=== PATIENT | female | born 1940 | race Caucasian/White ===

== ENCOUNTER 2016-09-11 19:12 | Emergency (ER) | payer MEDICARE ==
--- NOTE | ~2016-09-11 | CR219 ---
[facility] A Service of [facility] & [facility] RADIOLOGY TEXT RESULTS PATIENT: KELLIE ERNANDEZ LOCATION: [facility] : 44 UNIT #: [id number] AGE: [address]: Ken Hummel MD SEX: F ORDER DR: [id number] [facility] [address] [place], [place] [address] [id number] MR#: [id number] Acc #: [id number] NAME: KELLIE ERNANDEZ : 1940 SEX: F STUDY DATE/TIME: 09/11/2016 19:48 UNIT: [facility] ROOM: STUDY DESCRIPTION: CR Sacrum and Coccyx Min 2 Vie Attending Physician: Ken Hummel M.D. Referring Physician: aRndi Baker M.D. Ordering Physician: Ken Hummel M.D. Primary Care Physician: Randi Baker M.D. MEDICAL IMAGING REPORT This report is preliminary unless electronic signature is present EXAM Sacral coccygeal series dated 09/11/[address] chest, abdomen and pelvis dated 04/07/11 HISTORY The patient fell today while gardening. Sacrococcygeal pain since then. FINDINGS Inlet, outlet views of the sacrococcygeal spine along with a lateral view was obtained. Four images are given. The study is significantly limited. No obvious acute well-defined displaced fracture could be identified. There is mild cortical irregularity noted in the sacrococcygeal junction. Meanwhile, the images do not appear to confirm the fracture in the other lateral view. No significant abnormality is discerned in the frontal view, and if this raises some clinical concern, CT pelvic can be considered. Bilateral SI joints do not demonstrate dislocation or widening. Calcifications are noted in the pelvic soft tissues. They are probably phleboliths, based on statistics, benign. Dictated by... Violet Levy M.D. THIS IS AN ELECTRONICALLY VERIFIED REPORT Violet Levy M.D. at 09/14/2016 1:39 PM CPR/ea TD: 09/12/2016 15:05 JOB #: [id number] [facility] A Service of [facility] & [facility] RADIOLOGY TEXT RESULTS PATIENT: KELLIE ERNANDEZ LOCATION: [facility] : 44 UNIT #: [id number] AGE: [address]: Ken Hummel MD SEX: F ORDER DR: MEDICAL IMAGING REPORT Page 1 of 1 COPY
--- NOTE | ~2016-09-11 | ER ---
Unit #: [id number] #: [id number] Patient: KELLIE ERNANDEZ [id number] [facility]. [place], [place] [address] [id number] E MR#: [id number] NAME: KELLIE ERNANDEZ ROOM: Sex: F Age: 75 : 1940 Service Date: 09/11/2016 Attending Physician: Ken Hummel M.D. Primary Care Physician: Randi Baker M.D. EMERGENCY DEPT PHYSICIAN NOTE Please see the written T-sheet for the full details of the encounter. Mrs. Ernandez is a very pleasant 75-year-old woman who was seen in the emergency department today after a mechanical fall in which she hit her head. She denied any loss of consciousness as well as any headache, blurred vision, nausea, or any other concerning symptoms following her injury. She did suffer a stellate laceration to her posterior scalp which was repair here with surgical poncho. A CAT scan of her head was ordered and the results was called to me by the radiologist. The radiologist stated that the patient had a small focus of blood in her right cerebellum with some surrounding edema. In the context of trauma, it could represent a traumatic intraparenchymal hemorrhage; however, the radiologist stated that given her history of cancer a metastatic lesion could not be ruled out. I went to discuss the results with the patient who understood the two possibilities of traumatic hemorrhage versus metastatic lesion. I informed her that in this scenario, we would typically transfer the patient for evaluation by neurosurgery at [facility]. The patient was very adamant that she did not wish to be transferred to [place]. I explained the possibility that if this were a hemorrhage and were to get worse she could risk permanent neurologic dysfunction and/or . She was able to understand this risk and repeat it back to me. I also discussed with the patient that this could represent a hemorrhagic metastatic lesion from her cancer in which case this would need to be addressed as soon as possible by her oncologist and that she would likely need an MRI with and without contrast to better characterize the lesion. Again, the patient was able to understand this instruction and repeat it back to me. As the patient had decided that she was not agreeable to transfer to [facility], she was given warnings regarding possible intracranial hemorrhage. Specifically, she was told that if she were to have any increase in headache, blurring of vision, nausea or vomiting, a change or decrease in mental status, that she was to proceed immediately to [facility] by EMS for emergent evaluation. The patient was agreeable to this. She will be given standard AMA paperwork to sign and will be encouraged as stated previously to follow up with her oncologist on Wednesday to inform him of this result. Dictated by... Ken Hummel M.D. Unit #: [id number] #: [id number] Patient: KELLIE ERNANDEZ JOSE R/cs TD: 09/12/2016 15:15 JOB #: [id number] EMERGENCY DEPT PHYSICIAN NOTE Page 1 of 1 X Ken Hummel MD X EMERGENCY DEPARTMENT REPORT
--- NOTE | ~2016-09-11 | CT71 ---
[facility] A Service of [facility] RADIOLOGY TEXT RESULTS PATIENT: KELLIE ERNANDEZ LOCATION: [facility] : 44 UNIT #: [id number] AGE: [address]: Ken Hummel MD SEX: F ORDER DR: [id number] [facility]. [place], [place] [address] [id number] E MR#: [id number] Acc #: [id number] NAME: KELLIE ERNANDEZ : 1940 SEX: F STUDY DATE/TIME: 09/11/2016 19:36 UNIT: [facility] ROOM: STUDY DESCRIPTION: CT Head Wo Contrast Attending Physician: Ken Hummel M.D. Referring Physician: Randi Baker M.D. Ordering Physician: Ken Hummel M.D. Primary Care Physician: Randi Baker M.D. MEDICAL IMAGING REPORT This report is preliminary unless electronic signature is present EXAM CT head, noncontrast, 09/11/2016 HISTORY A 75-year-old female in the ED after head injury. She reportedly lost her balance and fell today, striking the back of her head. 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 TECHNIQUE This CT exam was performed with one or more of the following radiation dose reduction techniques: automatic exposure control, adjustment of mA and/or kV according to patient size, and iterative reconstruction. CT examination of the head was performed without IV contrast. FINDINGS There is a small ill-defined focus of acute hemorrhage within the right cerebellar hemisphere measuring about 11 mm, there is fairly extensive surrounding white matter edema. While this may represent posttraumatic hemorrhage, a hemorrhagic metastatic lesion is not entirely excluded. No other brain lesion is identified. Short interval followup CT examination is recommended. If there is ongoing clinical concern for metastatic disease, MRI examination of the brain before and after contrast may be helpful. Left posterior parietal scalp laceration. No visible skull fracture. Mild generalized cerebral cortical atrophy. I have discussed the results and recommendations by telephone with Dr. Hummel in the ED prior to this dictation. [facility] A Service of [facility] & [facility] RADIOLOGY TEXT RESULTS PATIENT: KELLIE ERNANDEZ [id number] 44 UNIT #: [id number] AGE: [address]: Ken Hummel MD SEX: F ORDER DR: IMPRESSION 1. Solitary focus of ill-defined acute parenchymal hemorrhage in the right cerebellum with surrounding white matter edema. Given the history of posterior head trauma today, posttraumatic hemorrhage is considered most likely. However, given the known history of metastatic colon cancer, a hemorrhagic metastatic brain lesion is also a consideration, particularly given the degree of surrounding white matter edema. 2. No additional brain lesion is identified. No additional evidence of acute intracranial abnormality. 3. Left posterior parietal scalp laceration. No skull fracture. 4. Short interval followup head CT examination is recommended. MRI examination of the brain with and without contrast may also be helpful. Dictated by... Maurice Keyes M.D. THIS IS AN ELECTRONICALLY VERIFIED REPORT Maurice Keyes M.D. at 09/14/2016 5:59 AM Dandre TD: 09/12/2016 15:20 JOB #: [id number] MEDICAL IMAGING REPORT Page 1 of 1 COPY
== END 2016-09-11 20:50 | disposition home or self-care (01) ==
LOC: CED 19:12
DX: S06.370A Contusion, laceration, and hemorrhage of cerebellum without loss of consciousness, initial encounter (principal); S01.01XA Laceration without foreign body of scalp, initial encounter; S30.0XXA Contusion of lower back and pelvis, initial encounter; I10 Essential (primary) hypertension; Z88.0 Allergy status to penicillin; W01.0XXA Fall on same level from slipping, tripping and stumbling without subsequent striking against object, initial encounter; Y92.009 Unspecified place in unspecified non-institutional (private) residence as the place of occurrence of the external cause
CPT/HCPCS: 12002; 70450; 72220; 99284